=== PATIENT | male | born 1955 | race Caucasian/White ===

== ENCOUNTER 2019-03-09 18:06 | Emergency (ER) | payer BC ==
--- NOTE | 2019-03-09 19:15 | EDPHY ---
H & P Time Seen by Provider: 03/09/19 18:06 HPI/ROS: This patient developed arm swelling over the past few days at the site where he injects insulin which is now red swollen and painful. He reports the intensity is moderate. He reports no associated symptoms except low-grade subjective fevers. He has no nausea or vomiting. He reports no other complaints. 5 point review of symptoms is performed and otherwise negative with exception of pertinent positives and negatives listed in HPI and ROS Past medical history: Insulin dependent diabetes Smoking Status: Never smoked Physical Exam: Physical Exam Vital signs are normal. General: No acute distress HEENT: Atraumatic. Eyes: Pupils equal and react to light. Extraocular motions are intact. Lungs: No respiratory distress. Cardiac: Brisk capillary refill is intact throughout. Skin: Patient has a left arm abscess with surrounding cellulitis. The total area is approximately 15 cm x 10 cm. There is foul-smelling purulent discharge. There is warm to touch. Neuro: Alert and oriented x3 with no sensorimotor deficits. Constitutional: Initial Vital Signs Temperature (C) 37.2 C 03/09/19 18:12 Heart Rate 73 03/09/19 18:12 Respiratory Rate 16 03/09/19 18:12 Blood Pressure 182/98 H 03/09/19 18:12 O2 Sat (%) 95 03/09/19 18:12 O2 Delivery Mode Room Air Allergies/Adverse Reactions: No Known Allergies Allergy (Verified 03/09/19 18:43) Home Medications: Medication Instructions Recorded Aspirin [Aspirin 325 mg (*)] 325 mg PO HS 04/18/15 Atorvastatin Calcium [Lipitor 40 40 mg PO HS 04/18/15 mg (*)] Insulin Aspart [Novolog Flexpen] 0 unit SQ TIDMEAL 04/18/15 Insulin Glargine,Hum.rec.anlog 20 unit SQ HS 04/18/15 [Lantus Solostar] Lisinopril [Zestril 40 mg (*)] 40 mg PO DAILY@12 04/18/15 metFORMIN HCL [Glucophage 500 mg 1,000 mg PO BID@,20 04/18/15 (*)] Amox Tr/K Clav (Augmentin) 500 mg PO TID #30 tab 03/09/19 [Augmentin 500/125 MG TAB (*)] MDM/Departure - MDM Diagnostics: Cultures pending Procedures: I&D abscess: After verbal consent using baby shampoo saline and gauze scrub the area used a 50 50 mix of 1% lidocaine 0.5% Marcaine 27 gauge needle injecting 6 mL with good effect. I then used a 15 scalpel blade a T-shaped incision used a Deidra clamp broke up loculations massage the area with foul- smelling purulent discharge. And then placed a quarter-inch gauze. Patient tolerated this with mild discomfort. I then irrigated the abscess with saline. - Depart Disposition: Home, Routine, Self-Care Clinical Impression: Abscess Condition: Good Instructions: Abscess (ED) Additional Instructions: Diagnosis: Arm abscess Plan: Heat packs Ibuprofen Tylenol Augmentin antibiotic Return for any worsening despite the treatment plan. Prescriptions: Amox Tr/K Clav (Augmentin) [Augmentin 500/125 MG TAB (*)] 500 mg PO TID #30 tab Referrals: NONE *PRIMARY CARE P,. [Primary Care Provider] - As per Instructions Fanta Bal MD [Medical Doctor] - As per Instructions
[2019-03-09 20:11] VITALS: BP 163/90
== END 2019-03-09 20:10 | disposition home or self-care (01) ==
LOC: CED 18:06
PROC: 0H9CXZZ Drainage of Left Upper Arm Skin, External Approach (ICD-10-PCS; principal; 2019-03-09)
DX: L02.414 Cutaneous abscess of left upper limb (principal); E11.9 Type 2 diabetes mellitus without complications; Z79.4 Long term (current) use of insulin
CPT/HCPCS: 99283-ER

== ENCOUNTER 2019-03-12 08:16 | Emergency (ER) | payer BC ==
--- NOTE | 2019-03-12 08:42 | EDPHY ---
H & P Time Seen by Provider: 03/12/19 08:23 HPI/ROS: CHIEF COMPLAINT: Wound check HISTORY OF PRESENT ILLNESS: Patient seen in this emergency department 3 days ago for left upper extremity abscess. It was incised and drained. He was started on Augmentin. He states that the wound is much better. He denies any fevers or chills. He has been taking his antibiotics. He is here for recheck and for packing removal. REVIEW OF SYSTEMS: Negative except per HPI. General Appearance: Alert, no distress. Eyes: Pupils equal and round no icterus Respiratory: No respiratory distress Neurological: Awake, alert, no focal deficits. Skin: Warm and dry, no rashes. Musculoskeletal: Neck is supple nontender. Extremities are symmetrical, full range of motion, no edema. Left upper extremity with surrounding induration and draining open wound. Packing removed. Wound irrigated and dressed. Psychiatric: Patient is oriented X 3, there is no agitation. Medical/surgical history: Diabetes Social history: Nonsmoker Smoking Status: Never smoked Constitutional: Initial Vital Signs Temperature (C) 36.7 C 03/12/19 08:30 Heart Rate 64 03/12/19 08:30 Respiratory Rate 14 03/12/19 08:30 Blood Pressure 180/93 H 03/12/19 08:30 O2 Sat (%) 94 03/12/19 08:30 O2 Delivery Mode Room Air Allergies/Adverse Reactions: No Known Allergies Allergy (Verified 03/12/19 08:29) Home Medications: Medication Instructions Recorded Aspirin [Aspirin 325 mg (*)] 325 mg PO HS 04/18/15 Atorvastatin Calcium [Lipitor 40 40 mg PO HS 04/18/15 mg (*)] Insulin Aspart [Novolog Flexpen] 0 unit SQ TIDMEAL 04/18/15 Insulin Glargine,Hum.rec.anlog 20 unit SQ HS 04/18/15 [Lantus Solostar] Lisinopril [Zestril 40 mg (*)] 40 mg PO DAILY@12 04/18/15 metFORMIN HCL [Glucophage 500 mg 1,000 mg PO BID@,20 04/18/15 (*)] Amox Tr/K Clav (Augmentin) 500 mg PO TID #30 tab 03/09/19 [Augmentin 500/125 MG TAB (*)] Medical Decision Making ED Course/Re-evaluation: 8:35 a.m. Packing removed Differential Diagnosis: Wound check as documented above. Packing removed without incident. Wound re- irrigated and dressed. Continue antibiotics as outpatient. Indications to return to the emergency department reviewed in detail. Stable for discharge. Departure - Departure Disposition: Home, Routine, Self-Care Clinical Impression: Wound check, abscess Condition: Good Instructions: Abscess (ED) Additional Instructions: Keep area clean, wash well in shower daily as discussed. Apply thin layer of antibiotic ointment and dressing to keep covered during the day. Continue antibiotics until prescription finished. Return to the emergency department for re-evaluation if wound gets worse in any way. Referrals: Vonda Saenz, [Primary Care Provider] - As per Instructions
[2019-03-12 09:04] VITALS: BP 176/92
== END 2019-03-12 09:03 | disposition home or self-care (01) ==
LOC: CED 08:16
DX: L02.414 Cutaneous abscess of left upper limb (principal)
CPT/HCPCS: 99282-ER